=== PATIENT | female | born 1995 | race Caucasian/White ===

== ENCOUNTER → 2017-03-31 | Outpatient (REF) | LOC: LAB 11:02 | DX: N76.0 Acute vaginitis (principal) ==

== ENCOUNTER → 2017-05-16 | Outpatient (REF) | LOC: LAB 08:41 | DX: J06.0 Acute laryngopharyngitis (principal) ==

== ENCOUNTER → 2019-03-08 | Outpatient (CLI) | payer BC | LOC: EDSTATUS 11:07 → LAB 18:27 | DX: N92.3 Ovulation bleeding (principal) ==